=== PATIENT | male | born 2000 | race Caucasian/White ===

== ENCOUNTER 2021-03-06 20:33 | Emergency (ER) | payer OTHER ==
[2021-03-06] MEDS ORDERED: LODINE CAP 300300 MG PO (22:58)
== END 2021-03-06 23:09 | disposition home or self-care (01) ==
LOC: ER1 20:33
DX: S62.630A Displaced fracture of distal phalanx of right index finger, initial encounter for closed fracture (principal); F17.290 Nicotine dependence, other tobacco product, uncomplicated; W22.8XXA Striking against or struck by other objects, initial encounter; Y92.89 Other specified places as the place of occurrence of the external cause; Y99.0 Civilian activity done for income or pay
CPT/HCPCS: 29130; 73130; 99283